=== PATIENT | female | born 1975 | race Caucasian/White ===

== ENCOUNTER 2021-05-12 10:17 | Inpatient (IN) | payer BC ==
[2021-05-12] MEDS ORDERED: Sodium Chloride 0.9% 1000 ML 1,000 ML IV STA (10:41)
[2021-05-12] MEDS ORDERED: Sodium Chloride 0.9% 1000 ML 1,000 ML ONE ×2 (11:04→17:43)
[2021-05-12 11:33] LABS: Absolute Neutrophil Ct (ANC) 3.34 (1.4-6.9); Basophil (Absolute #) 0.05 (0-0.4); Eosinophil % 0.7 % (0.00-5.0); Eosinophil (Absolute #) 0.04 (0-0.5); Hematocrit 40.7 % (35-47); Hemoglobin 12.6 gm/dl (12.0-16.0); Lymphocyte (Absolute #) 1.52 (1.0-4.6); Lymphocytes % 27.7 % (24.0-44.0); Mean Cell Volume 73.2 fl (78-100); Mean Corpuscular Hemoglobin 22.7 pg (26-32); Mean Platelet Volume 10.5 fl (7.5-11.0); Monocyte (Absolute #) 0.54 (0.0-1.3); Monocytes % 9.8 % (0.0-12.0); Neutrophil % 60.9 % (36.0-66.0); Platelet Count 274 K/mm3 (150-450); Red Blood Count 5.56 M/mm3 (4.1-5.4); Red Cell Distribution Width 19.3 % (11.5-14.0); White Blood Count 5.5 K/mm3 (4.0-10.5)
--- NOTE | 2021-05-12 12:10 | XRAY ---
Indication: Jaundice. Nausea. Multiple contiguous axial images obtained through the abdomen and pelvis using 80 cc Isovue 370 contrast. Comparison: None Lung bases are clear. Heart is not enlarged. Small fluid in the distal esophagus presumed from gastroesophageal reflux. Noncontrasted stomach and bowel loops appear nonobstructed. Minimal proximal sigmoid diverticulosis. Gallbladder normally distended with tiny pericholecystic fluid. Additional tiny perihepatic free fluid. No abnormal biliary distention. Liver is enlarged measuring 20.5 cm. Spleen is also enlarged measuring 14.5 cm. Remaining liver, gallbladder, pancreas, spleen, adrenal glands, kidneys, ureters, bladder, and uterus are unremarkable.. Minimal aortic calcifications. No AAA or pathologic lymphadenopathy. Osseous structures intact with minimal/mild degenerative changes throughout the thoracolumbar spine. No ventral or inguinal hernias. Impression: 1. Tiny pericholecystic and perihepatic free fluid of uncertain etiology. Acalculous cholecystitis not completely excluded in the right clinical setting. 2. Hepatosplenomegaly. 3. Fluid in the distal esophagus presumed from gastroesophageal reflux. 4. Remaining CT abdomen/pelvis with contrast exam is negative.
[2021-05-12 12:43] LABS: Appearance SLIGHTLY CLOUDY (CLEAR); Bacteria RARE /HPF (NEGATIVE); Bilirubin NEGATIVE (NEGATIVE); Blood LARGE Ery/ul (0-5); Epithelial Cells RARE /HPF (FEW); Glucose NEGATIVE (NEGATIVE); Ketones NEGATIVE (NEGATIVE); Leukocyte Esterase NEGATIVE (NEGATIVE); Nitrite NEGATIVE (NEGATIVE); Protein,Urine Dip NEGATIVE (Negative); Specific Gravity 1.006 (1.005-1.025); Urobilinogen NEGATIVE mg/dL (0-1)
[2021-05-12 12:46] LABS: RBC >101 /HPF (0-2)
--- NOTE | 2021-05-12 13:49 | XRAY ---
Indication: Jaundice. Cholecystitis. Limited right upper quadrant abdominal sonogram demonstrates normal distended gallbladder without gallstones. There is abnormal gallbladder wall thickening up to 4.9 mm but no pericholecystic fluid. Common bile duct measures 4 mm. No intrahepatic biliary distention. Remaining visualized liver, pancreas, and right kidney are sonographically unremarkable. Right kidney measures 11.6 cm in length. Impression: Gallbladder wall thickening without gallstones or biliary distention. Rule out acalculous cholecystitis.
[2021-05-12 15:00] LABS: INR 1.03 (0.8-3.0); PROTIME 12.1 SECONDS (9.4-12.5)
--- NOTE | 2021-05-12 16:28 | ERPHSYRPT ---
- History of Present Illness Time Seen by Provider: 05/12/21 10:45 Historian: patient Exam Limitations: no limitations Patient Subjective Stated Complaint: pt's skin and eyes are slightly yellow in color Triage Nursing Assessment: Pt brought self to the ER, hypotensive, rates abdominal discomfort as 1/10, face and eyes are yellow, no edema, palms red, hx of fatty liver, nauseous, reports smelly/mucousy stools, dark urine, pulses normal, doesn't appear to be in any distress Physician History: Patient is a 45-year-old white female who presents with a complaint of yellowness in the eyes and skin. She says this has come on over the last 48 hours or so. She has a history of fatty liver disease and in 2019 her liver functions were mildly elevated. She has mild discomfort in the epigastric area and some nausea, the gallbladder still present she has had no previous abdominal surgeries. She is also been having some sweats at night. Timing/Duration: day(s) (2) Activities at Onset: none Quality: aching, cramping Abdominal Pain Onset Location: RUQ, epigastric Pain Radiation: no radiation Severity of Pain-Max: mild Severity of Pain-Current: mild Modifying Factors: Improves With: eating Associated Symptoms: diaphoresis, loss of appetite, nausea Previous symptoms: no prior history Allergies/Adverse Reactions: Yeast Allergy (Verified 05/12/21 10:50) Home Medications: Escitalopram Oxalate 10 mg [Lexapro 10 MG] 10 mg PO DAILY 05/12/21 [History] Hyoscyamine Sulfate 0.125 mg [Anaspaz 0.125 mg] 0.125 mg PO DAILY PRN 05/12/21 [History] Lisinopril/Hydrochlorothiazide [Lisinopril-Hctz 20-12.5 mg Tab] 1 each PO DAILY 05/12/21 [History] Hx Tetanus, Diphtheria Vaccination/Date Given: Yes Hx Influenza Vaccination/Date Given: No Hx Pneumococcal Vaccination/Date Given: No Travel Risk - International Travel Have you traveled outside of the country in past 3 weeks: No - Coronavirus Screening Are you exhibiting any of the following symptoms?: No Close contact with a COVID-19 positive Pt in past 14-21 Days: No - Vaccine Status Have you recieved a Covid-19 vaccination: No - Review of Systems Constitutional: Night Sweats, No Fever, No Chills Eyes: No Symptoms, Other (Jaundice) Ears, Nose, & Throat: Ear Pain (Right ear pain) Respiratory: No Cough, No Dyspnea Cardiac: No Chest Pain, No Edema, No Syncope Abdominal/Gastrointestinal: Abdominal Pain, Nausea Genitourinary Symptoms: No Symptoms Musculoskeletal: No Symptoms Skin: Other (Jaundiced) Neurological: No Dizziness, No Focal Weakness, No Sensory Changes Psychological: No Symptoms Endocrine: No Symptoms Hematologic/Lymphatic: No Symptoms Immunological/Allergic: No Symptoms All Other Systems: Reviewed and Negative - Past Medical History Pertinent Past Medical History: Yes Neurological History: No Pertinent History ENT History: Other Cardiac History: No Pertinent History Respiratory History: No Pertinent History Endocrine Medical History: No Pertinent History Musculoskeletal History: No Pertinent History GI Medical History: GERD History: No Pertinent History Psycho-Social History: No Pertinent History Female Reproductive Disorders: Other Other Medical History: FREQUENT EAR INFECTIONS - Past Surgical History Past Surgical History: Yes Neuro Surgical History: No Pertinent History Cardiac: No Pertinent History Respiratory: No Pertinent History Gastrointestinal: No Pertinent History Genitourinary: No Pertinent History Musculoskeletal: No Pertinent History Female Surgical History: Tubal Ligation Other Surgical History: TUBES IN CATHY EARS - Social History Smoking Status: Never smoker Exposure to second hand smoke: No Drug Use: none Patient Lives Alone: No - Female History Hx Last Menstrual Period: 05/12/2021 Hx Now: No - Nursing Vital Signs Nursing Vital Signs: Initial Vital Signs Temperature 98.3 F 05/12/21 10:35 Pulse Rate 90 05/12/21 10:35 Blood Pressure 97/70 05/12/21 10:35 O2 Sat by Pulse Oximetry 98 05/12/21 10:35 Pain Scale Pain Intensity 4 - Physical Exam General Appearance: mild distress, alert, other (Appears jaundiced) Eye Exam: PERRL/EOMI, scleral icterus Ears, Nose, Throat Exam: normal ENT inspection, pharynx normal, moist mucous membranes Neck Exam: normal inspection, non-tender, supple, full range of motion Respiratory Exam: normal breath sounds, lungs clear, No respiratory distress Cardiovascular Exam: regular rate/rhythm, normal heart sounds Gastrointestinal/Abdomen Exam: soft, tenderness, No mass, No guarding, No rebound Back Exam: normal inspection, normal range of motion, No CVA tenderness, No vertebral tenderness Extremity Exam: normal inspection, normal range of motion, pelvis stable Neurologic Exam: alert, oriented x 3, cooperative, normal mood/affect, nml cerebellar function, sensation nml, No motor deficits Skin Exam: normal color, warm, dry SpO2: 98 - Course Nursing assessment & vital signs reviewed: Yes - CT Exams Abdomen/Pelvis CT Interpretation: Other (CT was consistent with possible a calculus cholecystitis because of pericholecystic and perihepatic fluid.) - Radiology Ultrasound Exam Gallbladder Ultrasound: Other (Ultrasound of the gallbladder shows gallbladder wall thickening no stones and pericystic fluid.) Ordered Tests: Active Orders 24 hr Category Date Time Status IV Insertion STAT Care 05/12/21 10:41 Active ABDOMEN AND PELVIS W CONTRAST [CT] Stat Exams 05/12/21 10:42 Completed US ABDOMEN LIMITED [ABDOMINAL-LIMITED] [US] Stat Exams 05/12/21 00:00 Completed AMYLASE Stat Lab 05/12/21 11:05 Received BMP Stat Lab 05/12/21 11:05 Received CBC W DIFF Stat Lab 05/12/21 11:05 Completed Hepatic Function Panel Stat Lab 05/12/21 11:05 Received LIPASE Stat Lab 05/12/21 11:05 Received Lactic Acid Stat Lab 05/12/21 11:09 Completed PROTIME WITH INR Stat Lab 05/12/21 11:05 Completed UA W/RFX UR CULTURE Stat Lab 05/12/21 11:26 Completed Medication Summary Discontinued Medications Generic Name Dose Route Start Last Admin Trade Name Freq PRN Reason Stop Dose Admin Sodium Chloride 1,000 mls @ 999 mls/hr 05/12/21 10:41 05/12/21 12:18 Sodium Chloride 0.9% 1000 Ml IV 05/12/21 11:41 Infused .Q1H1M STA Infusion Sodium Chloride Confirm 05/12/21 11:04 Sodium Chloride 0.9% 1000 Ml Administered 05/12/21 11:05 Dose 1,000 mls @ ud .ROUTE .STK-MED ONE Lab/Rad Data: Laboratory Result Diagrams 05/12/21 11:05 Laboratory Results 05/12/21 05/12/21 05/12/21 Range/Units 11:26 11:09 11:05 WBC (4.0-10.5) K/mm3 RBC (4.1-5.4) M/mm3 Hgb (12.0-16.0) gm/dl Hct (35-47) % MCV (78-100) fl MCH (26-32) pg MCHC (32-36) g/dl RDW (11.5-14.0) % Plt Count (150-450) K/mm3 MPV (7.5-11.0) fl Gran % (36.0-66.0) % Eos # (Auto) (0-0.5) Absolute Lymphs (auto) (1.0-4.6) Absolute Monos (auto) (0.0-1.3) Lymphocytes % (24.0-44.0) % Monocytes % (0.0-12.0) % Eosinophils % (0.00-5.0) % Basophils % (0.0-0.4) % Absolute Granulocytes (1.4-6.9) Basophils # (0-0.4) PT 12.1 (9.4-12.5) SECONDS INR 1.03 (0.8-3.0) Lactic Acid 1.5 (0.4-2.0) Urine Color JESSICA (YELLOW) Urine Appearance SLIGHTLY CLOUDY (CLEAR) Urine pH 7.0 (5-6) Ur Specific [place] 1.006 (1.005-1.025) Urine Protein NEGATIVE (Negative) Urine Ketones NEGATIVE (NEGATIVE) Urine Blood LARGE (0-5) Ronaldo/ul Urine Nitrite NEGATIVE (NEGATIVE) Urine Bilirubin NEGATIVE (NEGATIVE) Urine Urobilinogen NEGATIVE (0-1) mg/dL Ur Leukocyte Esterase NEGATIVE (NEGATIVE) Urine WBC (Auto) 3-5 (0-5) /HPF Urine RBC (Auto) >101 (0-2) /HPF U Epithel Cells (Auto) RARE (FEW) /HPF Urine Bacteria (Auto) RARE (NEGATIVE) /HPF Urine Culture Reflexed NO (NO) Urine Glucose NEGATIVE (NEGATIVE) mg/dL 05/12/21 Range/Units 11:05 WBC 5.5 (4.0-10.5) K/mm3 RBC 5.56 H (4.1-5.4) M/mm3 Hgb 12.6 (12.0-16.0) gm/dl Hct 40.7 (35-47) % MCV 73.2 L (78-100) fl MCH 22.7 L (26-32) pg MCHC 31.0 L (32-36) g/dl RDW 19.3 H (11.5-14.0) % Plt Count 274 (150-450) K/mm3 MPV 10.5 (7.5-11.0) fl Gran % 60.9 (36.0-66.0) % Eos # (Auto) 0.04 (0-0.5) Absolute Lymphs (auto) 1.52 (1.0-4.6) Absolute Monos (auto) 0.54 (0.0-1.3) Lymphocytes % 27.7 (24.0-44.0) % Monocytes % 9.8 (0.0-12.0) % Eosinophils % 0.7 (0.00-5.0) % Basophils % 0.9 (0.0-0.4) % Absolute Granulocytes 3.34 (1.4-6.9) Basophils # 0.05 (0-0.4) PT (9.4-12.5) SECONDS INR (0.8-3.0) Lactic Acid (0.4-2.0) Urine Color (YELLOW) Urine Appearance (CLEAR) Urine pH (5-6) Ur Specific [place] (1.005-1.025) Urine Protein (Negative) Urine Ketones (NEGATIVE) Urine Blood (0-5) Ronaldo/ul Urine Nitrite (NEGATIVE) Urine Bilirubin (NEGATIVE) Urine Urobilinogen (0-1) mg/dL Ur Leukocyte Esterase (NEGATIVE) Urine WBC (Auto) (0-5) /HPF Urine RBC (Auto) (0-2) /HPF U Epithel Cells (Auto) (FEW) /HPF Urine Bacteria (Auto) (NEGATIVE) /HPF Urine Culture Reflexed (NO) Urine Glucose (NEGATIVE) mg/dL - Progress Progress Note: 05/12/21 16:29 Patient was discussed with Dr. Linares and she will be kept in the hospital and started on antibiotics made n.p.o. and have a surgery consult Discussed with .: Suman Will see patient in: hospital (observation) - Departure Departure Disposition: Observation Clinical Impression: Acute acalculous cholecystitis Condition: Fair Critical Care Time: No Referrals: MARGARITA LINARES MD [Primary Care Provider] - Follow up/PCP as directed
[2021-05-12] MEDS ORDERED: Zofran 4 MG/2 ML VIAL IV PRN (16:31)
[2021-05-12] MEDS ORDERED: Hydromorphone 1 mg/ml Injection IV PRN (16:31)
[2021-05-12 17:21] LABS: INFLUENZA A NEGATIVE (NEGATIVE); INFLUENZA B NEGATIVE (NEGATIVE); RESPIRATORY SYNCTIAL VIRUS NEGATIVE (Negative); SARS-CoV-2 Xpert Express NEGATIVE (NEGATIVE)
[2021-05-12] MEDS: Sodium Chloride 0.9% 1000 ML 1,000 ML IV SCH ×2 (17:47→23:33)
[2021-05-12] MEDS: Zosyn 3.375 GM Vial 3.375 GM in Sodium Chloride 100ML MINI-BAG PLUS 100 ML IV SCH ×2 (17:55→23:33)
[2021-05-13] MEDS: Zosyn 3.375 GM Vial 3.375 GM in Sodium Chloride 100ML MINI-BAG PLUS 100 ML IV SCH ×4 (05:26→23:26)
[2021-05-13] MEDS: Sodium Chloride 0.9% 1000 ML 1,000 ML IV SCH ×3 (07:30→20:07)
[2021-05-13 08:10] LABS: HBsAg Screen Negative (Negative); Hep A Ab, IgM Negative (Negative); Hep B Core Ab, IgM Negative (Negative)
[2021-05-13 08:19] LABS: INR 1.01 (0.8-3.0); PROTIME 11.9 SECONDS (9.4-12.5)
[2021-05-13 08:20] LABS: ALBUMIN 3.3 g/dL (3.5-5.0); ALKALINE PHOSPHATASE 134 U/L (38-126); ANION GAP 11.9 MEQ/L (5-15); BLOOD UREA NITROGEN 6 mg/dL (7-17); CHLORIDE 108 mmol/L (98-107); Calcium 8.6 mg/dL (8.4-10.2); Carbon Dioxide 23 mmol/L (22-30); Creatinine 1 0.62 mg/dL (0.52-1.04); Direct Bilirubin 6.6 mg/dL (0.0-0.4); EST GLOMERULAR FILTRATION RATE > 60.0 ML/MIN; Glucose 93 mg/dL (74-106); Potassium 3.9 mmol/L (3.5-5.1); SGPT/ALT 731 U/L (0-35); SODIUM 139 mmol/L (137-145); Total Protein 6.4 g/dL (6.3-8.2)
[2021-05-13 09:33] LABS: SGOT/AST 1038 U/L (14-36)
[2021-05-13 09:36] LABS: Absolute Neutrophil Ct (ANC) 2.36 (1.4-6.9); Basophil (Absolute #) 0.02 (0-0.4); Eosinophil % 1.4 % (0.00-5.0); Eosinophil (Absolute #) 0.06 (0-0.5); Hematocrit 35.9 % (35-47); Lymphocyte (Absolute #) 1.35 (1.0-4.6); Lymphocytes % 30.7 % (24.0-44.0); Mean Cell Volume 74.5 fl (78-100); Mean Corpuscular Hemoglobin 22.8 pg (26-32); Mean Corpuscular Hgb Concent. 30.6 g/dl (32-36); Mean Platelet Volume 10.4 fl (7.5-11.0); Monocyte (Absolute #) 0.61 (0.0-1.3); Monocytes % 13.9 % (0.0-12.0); Neutrophil % 53.5 % (36.0-66.0); Platelet Count 242 K/mm3 (150-450); Red Blood Count 4.82 M/mm3 (4.1-5.4); White Blood Count 4.4 K/mm3 (4.0-10.5)
[2021-05-13 10:01] LABS: Hep C Virus Ab 0.1 s/co ratio (0.0-0.9)
[2021-05-13] MEDS: hydroDIURIL 25 MG PO SCH (13:37)
[2021-05-13] MEDS: Zestril 20 MG PO SCH (13:39)
[2021-05-13 15:05] LABS: Slide Review 1 YES
[2021-05-13] MEDS ORDERED: Pepcid 20 MG PO ONE (21:05)
[2021-05-13] MEDS ORDERED: Carafate 1 GM PO ONE (21:07)
[2021-05-14] MEDS: Sodium Chloride 0.9% 1000 ML 1,000 ML IV SCH ×4 (02:07→20:47)
[2021-05-14] MEDS: Zosyn 3.375 GM Vial 3.375 GM in Sodium Chloride 100ML MINI-BAG PLUS 100 ML IV SCH ×4 (05:45→23:50)
[2021-05-14 06:30] LABS: PROTIME 11.8 SECONDS (9.4-12.5)
[2021-05-14 06:33] LABS: Absolute Neutrophil Ct (ANC) 2.54 (1.4-6.9); Basophil (Absolute #) 0.04 (0-0.4); Eosinophil % 1.6 % (0.00-5.0); Eosinophil (Absolute #) 0.08 (0-0.5); Hematocrit 37.2 % (35-47); Hemoglobin 11.2 gm/dl (12.0-16.0); Lymphocyte (Absolute #) 1.65 (1.0-4.6); Lymphocytes % 33.6 % (24.0-44.0); Mean Cell Volume 75.2 fl (78-100); Mean Corpuscular Hemoglobin 22.6 pg (26-32); Mean Corpuscular Hgb Concent. 30.1 g/dl (32-36); Mean Platelet Volume 10.5 fl (7.5-11.0); Monocytes % 12.2 % (0.0-12.0); Neutrophil % 51.8 % (36.0-66.0); Platelet Count 257 K/mm3 (150-450); Red Blood Count 4.95 M/mm3 (4.1-5.4); Red Cell Distribution Width 19.6 % (11.5-14.0); White Blood Count 4.9 K/mm3 (4.0-10.5)
[2021-05-14 06:44] LABS: ALBUMIN 3.5 g/dL (3.5-5.0); ALKALINE PHOSPHATASE 136 U/L (38-126); ANION GAP 12.1 MEQ/L (5-15); BLOOD UREA NITROGEN 3 mg/dL (7-17); CHLORIDE 109 mmol/L (98-107); Calcium 8.9 mg/dL (8.4-10.2); Carbon Dioxide 22 mmol/L (22-30); Creatinine 1 0.58 mg/dL (0.52-1.04); Direct Bilirubin 7.8 mg/dL (0.0-0.4); EST GLOMERULAR FILTRATION RATE > 60.0 ML/MIN; Glucose 98 mg/dL (74-106); Potassium 3.8 mmol/L (3.5-5.1); SODIUM 139 mmol/L (137-145); Total Protein 6.8 g/dL (6.3-8.2)
[2021-05-14 06:51] LABS: SGOT/AST 1126 U/L (14-36); SGPT/ALT 774 U/L (0-35)
[2021-05-14] MEDS: hydroDIURIL 25 MG PO SCH (09:07)
[2021-05-14] MEDS: Zestril 20 MG PO SCH (09:07)
[2021-05-14] MEDS ORDERED: NON-FORMULARY ITEM (Lisinopril/Hydrochlorothiazide [Lisinopril-Hctz 20-12.5 Mg Tab] 1 EACH PO SCH (10:00)
[2021-05-14] MEDS ORDERED: Tums EX 750 MG PO PRN (20:05)
[2021-05-15] MEDS: Sodium Chloride 0.9% 1000 ML 1,000 ML IV SCH ×2 (02:45→09:38)
[2021-05-15] MEDS: Zosyn 3.375 GM Vial 3.375 GM in Sodium Chloride 100ML MINI-BAG PLUS 100 ML IV SCH ×3 (05:45→17:21)
[2021-05-15 06:02] LABS: Absolute Neutrophil Ct (ANC) 1.78 (1.4-6.9); Basophil (Absolute #) 0.03 (0-0.4); Eosinophil % 2.5 % (0.00-5.0); Eosinophil (Absolute #) 0.09 (0-0.5); Hematocrit 32.4 % (35-47); Hemoglobin 9.9 gm/dl (12.0-16.0); Lymphocyte (Absolute #) 1.28 (1.0-4.6); Lymphocytes % 35.2 % (24.0-44.0); Mean Corpuscular Hemoglobin 22.9 pg (26-32); Mean Corpuscular Hgb Concent. 30.6 g/dl (32-36); Mean Platelet Volume 10.3 fl (7.5-11.0); Monocyte (Absolute #) 0.46 (0.0-1.3); Monocytes % 12.6 % (0.0-12.0); Neutrophil % 48.9 % (36.0-66.0); Platelet Count 210 K/mm3 (150-450); Red Blood Count 4.32 M/mm3 (4.1-5.4); Red Cell Distribution Width 19.3 % (11.5-14.0); White Blood Count 3.6 K/mm3 (4.0-10.5)
[2021-05-15 06:08] LABS: ALKALINE PHOSPHATASE 117 U/L (38-126); ANION GAP 9.5 MEQ/L (5-15); CHLORIDE 111 mmol/L (98-107); Calcium 8.7 mg/dL (8.4-10.2); Carbon Dioxide 23 mmol/L (22-30); Creatinine 1 0.58 mg/dL (0.52-1.04); EST GLOMERULAR FILTRATION RATE > 60.0 ML/MIN; Glucose 92 mg/dL (74-106); Potassium 3.8 mmol/L (3.5-5.1); SGPT/ALT 645 U/L (0-35); SODIUM 140 mmol/L (137-145)
[2021-05-15 06:42] LABS: BLOOD UREA NITROGEN 2 mg/dL (7-17)
[2021-05-15 06:43] LABS: SGOT/AST 958 U/L (14-36)
--- NOTE | 2021-05-15 08:55 | PCM.NOTE ---
Date and Time: 05/15/21 0852 Subjective Assessment: patient has some mild pain in RUQ but not requiring pain meds. she is anxious to get out of the hospital if she is not having surgery. patient did have an illness two weeks ago with sore throat, tested negative for covid, influenza and mono on this visit Objective Exam General Appearance: no apparent distress, alert Skin Exam: jaundice Eye Exam: scleral icterus Respiratory Exam: normal breath sounds, lungs clear, No respiratory distress Cardiovascular Exam: regular rate/rhythm, normal heart sounds Gastrointestinal/Abdomen Exam: soft, No tenderness, No mass Extremity Exam: normal inspection, normal range of motion OBJECTIVE DATA Vital Signs: Vital Signs - 24 hr Temp Pulse Resp BP Pulse Ox 05/15/21 08:00 97.2 F 72 19 103/63 99 05/15/21 04:00 98.7 F 73 24 104/55 94 L 05/15/21 00:00 97.5 F 68 16 97/53 96 05/14/21 20:00 98 F 71 16 112/60 100 05/14/21 16:00 98.9 F 84 18 122/78 98 05/14/21 11:13 98.1 F 71 14 117/71 96 Pain Assessment - Last Documented Pain Intensity 0 Intake and Output: Intake & Output 05/12/21 05/13/21 05/14/21 05/15/21 11:59 11:59 11:59 11:59 Intake Total 1788 4757 5936 Output Total 200 2750 Balance 1788 8147 3186 Weight 102.058 kg 100.1 kg 106.2 kg 108 kg Lab Results: Lab Results-Last 24 Hours 05/15/21 05/15/21 05/15/21 Range/Units 04:30 04:30 04:30 WBC 3.6 L (4.0-10.5) K/mm3 RBC 4.32 (4.1-5.4) M/mm3 Hgb 9.9 L (12.0-16.0) gm/dl Hct 32.4 L (35-47) % MCV 75.0 L (78-100) fl MCH 22.9 L (26-32) pg MCHC 30.6 L (32-36) g/dl RDW 19.3 H (11.5-14.0) % Plt Count 210 (150-450) K/mm3 MPV 10.3 (7.5-11.0) fl Gran % 48.9 (36.0-66.0) % Eos # (Auto) 0.09 (0-0.5) Absolute Lymphs (auto) 1.28 (1.0-4.6) Absolute Monos (auto) 0.46 (0.0-1.3) Lymphocytes % 35.2 (24.0-44.0) % Monocytes % 12.6 H (0.0-12.0) % Eosinophils % 2.5 (0.00-5.0) % Basophils % 0.8 (0.0-0.4) % Absolute Granulocytes 1.78 (1.4-6.9) Basophils # 0.03 (0-0.4) Sodium 140 (137-145) mmol/L Potassium 3.8 (3.5-5.1) mmol/L Chloride 111 H (98-107) mmol/L Carbon Dioxide 23 (22-30) mmol/L Anion Gap 9.5 (5-15) MEQ/L BUN 2 L (7-17) mg/dL Creatinine 0.58 (0.52-1.04) mg/dL Estimated GFR > 60.0 ML/MIN Glucose 92 (74-106) mg/dL Calcium 8.7 (8.4-10.2) mg/dL Total Bilirubin 8.70 H (0.2-1.3) mg/dL Direct Bilirubin 7.4 H (0.0-0.4) mg/dL AST 958 H (14-36) U/L ALT 645 H (0-35) U/L Alkaline Phosphatase 117 (38-126) U/L Serum Total Protein 6.0 L (6.3-8.2) g/dL Albumin 3.0 L (3.5-5.0) g/dL Radiology Exams: Radiology Procedures Category Date Time Status HIDA-GALL BLADDER [NUCMED] Routine Exams 05/15/21 07:00 Ordered MRI ABD W/O CONTRAST [MRI] Routine Exams 05/15/21 07:00 Ordered Assessment/Plan (1) Elevated liver enzymes Current Visit: Yes Status: Acute Assessment & Plan: etiology is uncertain, awaiting MRCP and HIDA scan. hepatitis profile is negative, if no surgery is planned will consider hepatology referral as an outpatient at , ?recent viral illness or autoimmune etiology Code(s): R74.8 - ABNORMAL LEVELS OF OTHER SERUM ENZYMES (2) Jaundice Current Visit: Yes Status: Acute Code(s): R17 - UNSPECIFIED JAUNDICE (3) Acute acalculous cholecystitis Current Visit: Yes Status: Acute Code(s): K81.0 - ACUTE CHOLECYSTITIS
[2021-05-15] MEDS: Zestril 20 MG PO SCH (09:37)
[2021-05-15] MEDS: hydroDIURIL 25 MG PO SCH (09:37)
--- NOTE | 2021-05-15 10:32 | CONS ---
CONSULT DATE: 05/13/2021 REASON FOR CONSULT: Jaundice and abdominal pain. HISTORY: The patient had an episode about two weeks ago, that was not very well explained. She had a very high fever, had a lot of achiness and she was really stuffed up. She had a lot of upper congestive features. She was concerned she had sinusitis or ear infection. She has severe allergies. She has been on Flonase and Zyrtec fairly religiously. She was given steroids and antibiotic and she did improve. She has had a home COVID test that was negative twice. She now presents with basically painless jaundice. She has a just a wisp of upper abdominal discomfort but it is not much and most of the time it is just not there. She said she feels a little better today but her bilirubin has bumped from 7.49 up to 7.8. She has moderate to moderately high-elevated liver enzymes but certainly not overwhelming near the 800,000 range. Her hepatitis profile is negative. Her white counts are normal 4500 and 4800. PAST MEDICAL HISTORY: She has history of bowel complaints, possible colitis, irritable bowel syndrome and she has been on Anaspaz. It sounds like she has had quite a bit of GI investigation in the past especially colon woodward. She is hypertensive and has been on hydrochlorothiazide and lisinopril. She is also on Lexapro. ALLERGIES: YEAST. MEDICATIONS: Per the chart. PAST SURGICAL HISTORY: Tubal ligation. SOCIAL HISTORY: Negative tobacco, negative ETOH, negative drugs. No recent medicine changes. FAMILY HISTORY: Negative. PHYSICAL EXAMINATION: Stated age. CHEST: Clear. COR: Regular. ABDOMEN: Mild distention. No abdominal tenderness. No palpable mass. LAB DATA AND TESTS: CT scan was negative with a 4 mm common bile duct. She had some thickening of the gallbladder with slight pericolic cystic fluid but acute cholecystitis is not totally in by this. I explained to her with the white count and scant abdominal pain, it is very unlikely. She does have diagnosis of fatty liver and she has had this for some time. IMPRESSION AND PLAN: She has marked elevation of bilirubin to a lesser extent she has elevation of liver enzymes, which is certainly substantial, but not really suggesting infectious, low for infectious etiology and her profile is negative. She does have known history of fatty liver. She has a developing cirrhosis of the liver. She had a recent episode two weeks ago which seems like a major viral illness which may very well be related to the issue that she is having now. 1) There is an outside chance that she could have cholangitis related to ulcerative colitis. This is probably the worst thing this individual could have. 2) She continues to have a post-viral prodrome. We are checking for [place] virus and we are checking for coronovirus. 3) She could just have progression of her fatty liver disease to cirrhosis. I am not sure why her enzymes would be quite this high with that at this time. It certainly seems there is some diffuse inflammatory changes of the liver here in addition to the cholestasis. We will follow with medical. We are getting an MRCP on Saturday and also a HIDA scan on Saturday. I do think there is going to be a surgical solution to this issue although there is still an outside possibility.
--- NOTE | 2021-05-15 11:39 | XRAY ---
Indication: Acute cholecystitis. Conventional MRCP performed. Comparison: None Biliary tree and common bile duct are normal in course and caliber without focal stenosis, objection, or filling defect. Common bile duct measures 3-4 mm. Pancreatic duct not abnormally distended. Gallbladder normally distended with borderline wall thickening and small pericholecystic fluid but no cholelithiasis. Additional tiny perihepatic fluid seen posterior superiorly with tiny perihepatic fluid inferiorly. Enlarged liver measuring 20.2 cm and enlarged spleen measuring 14.9 cm. Remaining visualized liver, pancreas, spleen, adrenal glands, kidneys, stomach, bowel loops, aorta, and IVC are unremarkable. Incidental incompletely visualized right lung base pleural effusion. No abnormal bone marrow signal. Impression: 1. Negative MRCP. 2. Borderline gallbladder wall thickening with small pericholecystic fluid and tiny perihepatic fluid of uncertain etiology. Acalculous cholecystitis is not completely excluded in the right clinical setting. 3. Incidental incompletely visualized right pleural effusion.
--- NOTE | 2021-05-15 15:29 | XRAY ---
Indication: Acute acalculous cholecystitis. Elevated liver enzymes. Jaundice. Comparison: None Patient received 5 mCi technetium 99 Choletec. Immediate anterior planar imaging was performed first 90 minutes. Normal hepatic activity on the first image demonstrating incidental hepatomegaly. Normal biliary and gallbladder activity within 50 minutes. Normal biliary to bowel activity within 90 minutes. Patient then ingested 8 ounces Ensure Plus. Ejection fraction calculate 44%, normal. Impression: Negative HIDA scan. Normal ejection fraction 44%. Incidental hepatomegaly.
[2021-05-15 16:48] VITALS: BP 107/63; PULSE 78; O2SAT 93
--- NOTE | 2021-06-07 14:08 | SSS ---
ADMISSION DIAGNOSES: 1) Jaundice. 2) Right upper quadrant abdominal pain. DISCHARGE DIAGNOSIS: ACUTE HEPATITIS. HOSPITAL COURSE: This patient is a 45-year-old female who presented to the emergency department on the date of admission with the complaint of jaundice, nausea and some mild right upper quadrant abdominal pain. She had a work up which revealed markedly elevated liver function tests as well as an elevated bilirubin. CT scan of her abdomen and pelvis showed tiny pericholecystic and perihepatic free fluid with concern for possible acalculus cholecystitis. She also had some hepatosplenomegaly. Therefore was admitted for further work up and for surgical consultation. She was seen by surgery. She had a MRCP which was essentially negative, had some borderline gallbladder wall thickening and again some pericholecystic fluid with concern for possible acalculus cholecystitis. Due to this finding, had a follow up HIDA scan which showed negative HIDA scan, normal ejection fraction of 44%, some incidental hepatomegaly. She had a negative hepatitis panel. Negative Monospot. Negative COVID. Essentially workup showed no obvious etiology. Her total bilirubin had peaked at 9.1 on 05/14/2021. Showed some trending down on 05/15/2021 of 8.7. AST was 958. At discharge ALT 645. Her INR remained within normal limits during her entire stay so had no alarming hepatic failure. Surgery recommended hepatology follow up upon discharge. DISCHARGE PHYSICAL EXAM: HEENT: She had scleral icterus but was in no acute distress. CVS: Regular rate and rhythm. RESPIRATORY: Clear to auscultation bilaterally. ABDOMEN: Nonsurgical abdomen, soft, mild tenderness in the right upper quadrant but no guarding and no rebound. EXTREMITIES: No clubbing. No cyanosis. No edema. SKIN: There is some mild jaundice present. DISCHARGE MEDICATIONS: Zyrtec 10 mg daily, lisinopril/hydrochlorothiazide 20/12.5 p.o. q.d., Lexapro 10 mg p.o. q.d., hyoscyamine 0.125 mg p.o. daily PRN, Nexium 20 mg daily, Flonase nasal spray daily. DISCHARGE FOLLOW UP: She is being referred to Hepatology upon discharge. I advised to avoid acetaminophen otherwise no specific instructions.
== END 2021-05-15 19:45 | disposition home or self-care (01) | DRG 442 ==
LOC: ED 10:17 → MED SURG 17:37 → OBSVTOIN 05-13 08:00 → ED 05-13 10:17 → MED SURG 05-13 17:37
PROVIDERS: ADMIT Family Medicine; ATTEND Family Medicine
DX: B17.9 Acute viral hepatitis, unspecified (principal); R17 Unspecified jaundice; K81.0 Acute cholecystitis; R74.8 Abnormal levels of other serum enzymes; Z20.828 Contact with and (suspected) exposure to other viral communicable diseases; Z79.899 Other long term (current) drug therapy; R16.2 Hepatomegaly with splenomegaly, not elsewhere classified
CPT/HCPCS: 0241U; 36415; 74177; 74181; 76705; 78226; 80048; 80053; 80074; 80076; 81001; 82150; 82248; 83605; 83690; 85025; 85610; 86308; 96360; 99285; A9537; G0378; A9270-GY

== ENCOUNTER 2022-03-10 17:08 | Emergency (ER) | payer MEDICAID ==
[2022-03-10 17:29] VITALS: BP 133/72; PULSE 97; O2SAT 98
--- NOTE | 2022-03-10 17:39 | ERPHSYRPT ---
- History of Present Illness Time Seen by Provider: 03/10/22 17:11 Source: patient Exam Limitations: no limitations Patient Subjective Stated Complaint: Cough Triage Nursing Assessment: Patient ambulated back to ED and transferred self to bed. Patient A+OX 3. Patient's skin pink, warm and dry. Patient complains of cathy ear pain, cough, body aches, nasal drainage and sore throat since Saturday. Patient denies pain or discomfort. Lungs clear a/p cathy. Physician History: 46 years old female with history of seasonal allergies, recurrent ear infection with my rhinotomy to presented in the ER with chief complaint of flulike symptoms for 1 week. Patient reports nonproductive cough congestion and pressure in both years without any discharge. Aches and pains all over with no fever. No difficulty breathing. Timing/Duration: week(s) (1), gradual onset, worse Cough Quality/Degree: moderate, dry cough Possible Cause: illness exposure Modifying Factors: Worsens With: coughing Associated Symptoms: cough, earache, headache, muscle aches, nasal congestion, sinus infection, sore throat, No fever, No chest pain/soreness, No shortness of breath, No wheezing Allergies/Adverse Reactions: Yeast Allergy (Verified 05/12/21 10:50) amoxicillin [From Augmentin] Adverse Reaction (Verified 03/10/22 17:18) clavulanic acid [From Augmentin] Adverse Reaction (Verified 03/10/22 17:18) Home Medications: Escitalopram Oxalate [Lexapro] 10 mg PO DAILY 05/12/21 [History] Esomeprazole Magnesium [Nexium] 20 mg PO DAILY 05/12/21 [History] Fluticasone Propionate [Flonase Allergy Relief] 1 ml NS HS 05/12/21 [History] Lisinopril/Hydrochlorothiazide [Lisinopril-Hctz 20-12.5 mg Tab] 1 tab PO DAILY 05/12/21 [History] Tacrolimus [Prograf] 1 tab PO BID 03/10/22 [History] predniSONE [Prednisone] 7.5 mg PO DAILY 03/10/22 [History] Hx Tetanus, Diphtheria Vaccination/Date Given: Yes Hx Influenza Vaccination/Date Given: No Hx Pneumococcal Vaccination/Date Given: No Immunizations Up to Date: Yes Travel Risk - International Travel Have you traveled outside of the country in past 3 weeks: No - Coronavirus Screening Are you exhibiting any of the following symptoms?: Yes Symptoms: Cough: New Onset, Headaches/Body Aches/Fatigue Close contact with a COVID-19 positive Pt in past 14-21 Days: No - Vaccine Status Have you recieved a Covid-19 vaccination: Yes Delivery Supervisor: Unknown - Vaccination Dates Date of 2cond Vaccination (if applicable): na Dates if Unknown: na - Review of Systems Constitutional: No Symptoms Eyes: No Symptoms Ears, Nose, & Throat: Ear Pain, Nose Congestion, Throat Pain, Throat Swelling, No Ear Discharge Respiratory: Cough Cardiac: No Symptoms Abdominal/Gastrointestinal: No Symptoms Genitourinary Symptoms: No Symptoms Musculoskeletal: Myalgias Skin: No Symptoms Neurological: Headache Psychological: No Symptoms Endocrine: No Symptoms Hematologic/Lymphatic: No Symptoms Immunological/Allergic: No Symptoms - Past Medical History Pertinent Past Medical History: Yes Neurological History: No Pertinent History ENT History: Other Cardiac History: Hypertension Respiratory History: No Pertinent History Endocrine Medical History: Other Musculoskeletal History: No Pertinent History GI Medical History: GERD History: No Pertinent History Psycho-Social History: No Pertinent History Female Reproductive Disorders: Other Other Medical History: FREQUENT EAR INFECTIONS, fatty liver. liver problems caused from Augmentin - Past Surgical History Past Surgical History: Yes Neuro Surgical History: No Pertinent History Cardiac: No Pertinent History Respiratory: No Pertinent History Gastrointestinal: No Pertinent History Genitourinary: No Pertinent History Musculoskeletal: No Pertinent History Female Surgical History: Tubal Ligation Other Surgical History: TUBES IN CATHY EARS - Social History Smoking Status: Never smoker Exposure to second hand smoke: No Drug Use: none Patient Lives Alone: No - Female History Hx Last Menstrual Period: currently Hx Now: No - Nursing Vital Signs Nursing Vital Signs: Initial Vital Signs Temperature 98.2 F 03/10/22 17:22 Pulse Rate 97 H 03/10/22 17:22 Respiratory Rate 18 03/10/22 17:22 Blood Pressure 133/72 03/10/22 17:22 O2 Sat by Pulse Oximetry 98 03/10/22 17:22 Pain Scale Pain Intensity 0 - Physical Exam General Appearance: no apparent distress, alert Eye Exam: PERRL/EOMI Ears, Nose, Throat Exam: TM abnormal (L), pharyngeal erythema Neck Exam: normal inspection, supple, full range of motion, No lymphadenopathy Respiratory Exam: normal breath sounds, lungs clear Cardiovascular Exam: regular rate/rhythm, normal heart sounds Back Exam: normal inspection Extremity Exam: normal inspection, normal range of motion Neurologic Exam: alert, oriented x 3, business development coordinator II-XII nml as tested Skin Exam: normal color SpO2 Interpretation: normal SpO2: 98 O2 Delivery: Room Air Lab/Rad Data: Laboratory Results 03/10/22 Range/Units 17:28 Influenza Type A Ag NEGATIVE (NEGATIVE) Influenza Type B Ag NEGATIVE (NEGATIVE) RSV (PCR) NEGATIVE (Negative) SARS-CoV-2 (PCR) NEGATIVE (NEGATIVE) Group A Strep Antibody NOT DETECTED (NEGATIVE) - Progress Progress: unchanged Air Movement: good Progress Note: 03/10/22 18:34 Has negative strep, flu, RSV, COVID. URI with cough congestion and some eustachian tube dysfunction. We will give a prescription of Flonase and Zyrtec as needed along with supportive care. Outpatient follow-up. Blood Culture(s) Obtained: No Antibiotics given: No Counseled pt/family regarding: lab results, diagnosis, need for follow-up - Departure Departure Disposition: Home Clinical Impression: URI with cough and congestion Condition: Stable Critical Care Time: No Referrals: MARGARITA LINARES MD [Primary Care Provider] - Follow Up with PCP/3 days Instructions: Cough, Adult (DC) Additional Instructions: Take Tylenol/ibuprofen as needed for aches and pains. Zyrtec as needed for congestion. Follow-up with primary care for reevaluation. Return to ER for any worsening Prescriptions: Fluticasone Propionate [Flonase NASAL] 16 gm NS DAILY 7 Days #1 cartridge
[2022-03-10 17:58] LABS: Group A Strep NOT DETECTED (NEGATIVE)
[2022-03-10 18:10] LABS: INFLUENZA A NEGATIVE (NEGATIVE); INFLUENZA B NEGATIVE (NEGATIVE); RESPIRATORY SYNCTIAL VIRUS NEGATIVE (Negative); SARS-CoV-2 Xpert Express NEGATIVE (NEGATIVE)
== END 2022-03-10 18:43 | disposition home or self-care (01) ==
LOC: ED 17:08
DX: J06.9 Acute upper respiratory infection, unspecified (principal); R05.1 Acute cough; R09.81 Nasal congestion; H92.03 Otalgia, bilateral; I10 Essential (primary) hypertension; Z79.52 Long term (current) use of systemic steroids; Z79.899 Other long term (current) drug therapy
CPT/HCPCS: 0241U; 87651; 99282